=== PATIENT | female | born 1940 | race Caucasian/White ===

== ENCOUNTER → 2016-11-15 | Outpatient (CLI) | payer MEDICARE ==
[~2016-11-15] MED LIST: BAYER CHEWABLE81 MG PO; CALCIUM + D 6001 TA1 PO; CLOPIDOGREL75 MG PO; DIOVAN HCT 1601 EACH PO; FLEXERIL10 M1 PO; IMDUR-ER30 M1 PO; MULTI-VITAMIN1 EAC1 PO; NAPROXEN PO; NITROGLYGERIN0.4 MG SL; NORVASC PO; OSTEO BI-FLEX1 EAC2 PO; PRILOSEC PO; PRILOSEC20 MG PO; SYNTHROID88 MCG PO; TYLENOL #3 PO; VOLTAREN50 MG PO
--- NOTE | ~2016-11-15 | MY11 ---
[facility] A Service of [facility] RADIOLOGY TEXT RESULTS PATIENT: KAUSHAL ALCOCER LOCATION: [facility] : 36 UNIT #: [id number] AGE: [address]: Tiburcio Stone MD SEX: F ORDER DR: [id number] [facility]. [place], [place] [address] [id number] O MR#: [id number] Acc #: [id number] NAME: KAUSHAL ALCOCER. : 1940 SEX: F STUDY DATE/TIME: 11/15/2016 9:37 UNIT: [facility] ROOM: STUDY DESCRIPTION: MY Mammogram Screening Dig Sagar Attending Physician: Tiburcio Stone M.D. Referring Physician: Tiburcio Stone M.D. Ordering Physician: Tiburcio Stone M.D. Primary Care Physician: Tiburcio Stone M.D. MEDICAL IMAGING REPORT This report is preliminary unless electronic signature is present EXAM Bilateral digital screening with CAD. INDICATION Routine screening. No current complaints. No family history of breast cancer. COMPARISON 11/14/2015, 10/27/2014, 04/24/2013. FINDINGS MLO and CC digital views of each breast were obtained with 2-D technique and reviewed with an FDA-approved CAD. There are scattered fibroglandular densities present. There are no masses or abnormal calcifications. There has been no change. IMPRESSION No change; no evidence of malignancy. Patients over the age of 40 are entered into a reminder system with target due date for the next mammogram. A result letter will also be sent to the patient. BIRADS: 1 Negative Dictated by... Shiraz Perkins M.D. THIS IS AN ELECTRONICALLY VERIFIED REPORT Shiraz Perkins M.D. at 11/16/2016 9:38 AM [facility] A Service [facility] RADIOLOGY TEXT RESULTS PATIENT: KAUSHAL ALCOCER LOCATION: [facility] : 36 UNIT #: [id number] AGE: [address]: Tiburcio Stone MD SEX: F ORDER DR: Zeus TD: 11/15/2016 13:12 JOB #: [id number] MEDICAL IMAGING REPORT Page 1 of 1 COPY
== END | disposition home or self-care (01) ==
LOC: CWCC 09:27
DX: Z12.31 Encounter for screening mammogram for malignant neoplasm of breast (principal)
CPT/HCPCS: G0202